=== PATIENT | female | born 1925 | race Caucasian/White ===

== ENCOUNTER 2016-07-12 04:36 | Inpatient (IN) | payer MEDICARE ==
[~2016-07-12] VITALS: Ht 154.9 cm; Wt 46.6 kg
[2016-07-12] VITALS (11 sets, daily range): BP systolic 104–161; BP diastolic 71–92; PULSE 81–126; RESP 18–22; TEMP 97.5–98.9; O2SAT 94–100
[~2016-07-12 04:36] MED LIST: ALEN1TAB48 PO; ASPI81CH7 CHEW; CELE1CAP6 PO; DILT120C58 PO; DONE5TAB7 PO; FLUTI44I INH; FURO1TAB62 PO; IPRA17I INH; NAME10TA PO; POTA10TA8 PO; SERO25TA PO; SUCR1TAB PO; UMEC1AER INH; XARE15TA PO; ZOLO50TA PO
[2016-07-12] MEDS ORDERED: RESP: ALBUTEROL 2.5 MG/IPRATROPIUM 0.5 MG NEB (SCH) INH ONE (04:45)
[2016-07-12] MEDS ORDERED: SODIUM CHLORIDE 0.9% FLUSH 10 ML FLUSH IVF PRN (04:45)
--- NOTE | 2016-07-12 04:45 | PD ---
HPI Chief Complaint: Respiratory Symptoms Time Seen by Provider: 04:41 Travel History International Travel<30 days: No Contact w/Intl Traveler<30days: No Traveled to known affect area: No History of Present Illness HPI 89-year-old female with history of COPD, dementia, multiple medical issues, presents to the ER today because of several days history of shortness of breath. EMS had given her Solu-Medrol and nebulizer in route and reports some improvement in symptoms. She denies fevers, chest pains, or other issues although it is not clear whether she is reliable historian. Modifying Factors: None Associated Signs & Symptoms: Several days of shortness of breath Risk Factors: COPD history PFSH Past Medical History Hx Anticoagulant Therapy: Yes (XARELTO) Arthritis: Yes Atrial Fibrillation: Yes Blood Disorders: No Anxiety: Yes Depression: Yes Heart Rhythm Problems: Yes (AFIB) Cancer: No Cardiovascular Problems: Yes (AFIB/FLUTTER) COPD: Yes Dementia: Yes Diminished Hearing: No Endocrine: No Gastrointestinal Disorders: No Genitourinary: No Immune Disorder: No Musculoskeletal: Yes (SPINAL STENOSIS, PELVIX FX) Neurologic: Yes Psychiatric: Yes Reproductive: No Respiratory: Yes (COPD) Immunizations Current: Yes Sleep Apnea: Yes Past Surgical History Abdominal Surgery: Yes (APPENDECTOMY, GALLBLADDER REMOVED) Appendectomy: Yes Cardiac Surgery: No Cholecystectomy: Yes Eye Surgery: Yes (CATARACT BILAT REPAIR) Gynecologic Surgery: Yes (HYSTERECTOMY) Hysterectomy: Yes Neurologic Surgery: No Thoracic Surgery: No Tonsillectomy: Yes Other Surgery: Yes (BACK SURGERY) Social History Alcohol Use: No Tobacco Use: No Substance Use: No Allergies-Medications (Allergen,Severity, Reaction): Coded Allergies: Lyrica (Verified Allergy, Severe, 11/24/15) Sulfa (Verified Allergy, Severe, HIVES, 11/24/15) Soma (Verified Allergy, Intermediate, passes out, 11/24/15) Reported Meds & Prescriptions Reported Meds & Active Scripts Active Seroquel (Quetiapine Fumarate) 25 Mg Tab 25 Mg PO HS Lasix (Furosemide) 20 Mg Tab 20 Mg PO MWF Reported Flonase Allergy Relief Children Nasal [place] (Fluticasone Nasal [place]) 50 Mcg/ Act [place] 1 [place] EACH NARE DAILY 50 mcg/spray Osteoprime Ultra (Multiple Vitamins W/ Minerals) 1 Tab Tab Fosamax (Alendronate Sodium) 70 Mg Tab 70 Mg PO Q7D PRN Docusate Sodium 100 Mg Cap 100 Mg PO BID Lanoxin (Digoxin) 0.125 Mg Tab 0.125 Mg PO DAILY Cardizem (Diltiazem HCl) 120 Mg Tab 120 Mg PO DAILY Zoloft (Sertraline HCl) 25 Mg Tab 25 Mg PO DAILY Xarelto (Rivaroxaban) 15 Mg Tab 15 Mg PO DAILY Potassium Chloride CR (Potassium Chloride) 10 Meq Tab 10 Meq PO MWF Namenda (Memantine) 10 Mg Tab 10 Mg PO BID Atrovent HFA 12.9 GM Inh (Ipratropium [place]) 17 Mcg/Act Aer 2 Puff INH TID Flovent Hfa 10.6 GM Inh (Fluticasone Propionate) 44 Mcg/Act Inh 2 Puff INH BID Use daily at the same time. Donepezil 5 Mg Tab 5 Mg PO HS Review of Systems ROS Limitations: Poor Historian Except as stated in HPI: all other systems reviewed are Neg Physical Exam Narrative GENERAL: Well-developed elderly white female patient currently in mild respiratory distress. Awake and disoriented. SKIN: Focused skin assessment warm/dry. HEAD: Atraumatic. Normocephalic. EYES: Pupils equal and round. No scleral icterus. No injection or drainage. ENT: No nasal bleeding or discharge. Mucous membranes pink and moist. NECK: Trachea midline. No JVD. CARDIOVASCULAR: Regular rate and rhythm. No murmur appreciated. RESPIRATORY: Mild accessory muscle use. Wheezing throughout bilaterally. Breath sounds equal bilaterally. GASTROINTESTINAL: Abdomen soft, non-tender, nondistended. Hepatic and splenic margins not palpable. MUSCULOSKELETAL: No obvious deformities. No clubbing. No cyanosis. No edema. NEUROLOGICAL: Awake and alert. No obvious cranial nerve deficits. Motor grossly within normal limits. Normal speech. PSYCHIATRIC: Appropriate mood and affect; insight and judgment normal. Data Data Last Documented VS Vital Signs Date Time Temp Pulse Resp B/P Pulse Ox O2 Delivery O2 Flow Rate FiO2 07/12/16 06:12 81 18 142/71 94 Room Air 07/12/16 04:52 2.00 07/12/16 04:42 98.9 Orders Complete Blood Count With Diff (07/12/16 04:41) Comprehensive Metabolic Panel (07/12/16 04:41) B-Type Natriuretic Peptide (07/12/16 04:41) Troponin I (07/12/16 04:41) Influenzae A/B Antigen (07/12/16 04:41) Blood Culture (07/12/16 04:41) Iv Access Insert/Monitor (07/12/16 04:41) Electrocardiogram (07/12/16 04:41) Ecg Monitoring (07/12/16 04:41) Oximetry (07/12/16 04:41) Oxygen Administration (07/12/16 04:41) Chest, Single Ap (07/12/16 04:41) Sodium Chloride 0.9% Flush (Ns Flush) (07/12/16 04:45) Albuterol-Ipratropium Neb (Duoneb Neb) (07/12/16 04:45) Lactic Acid Sepsis Protocol (07/12/16 04:41) Azithromycin Inj (Zithromax Inj) (07/12/16 05:42) Labs Laboratory Tests Test 07/12/16 04:50 White Blood Count 6.8 TH/MM3 Red Blood Count 4.35 MIL/MM3 Hemoglobin 12.2 GM/DL Hematocrit 37.0 % Mean Corpuscular Volume 85.1 FL Mean Corpuscular Hemoglobin 28.0 PG Mean Corpuscular Hemoglobin 33.0 % Concent Red Cell Distribution Width 15.0 % Platelet Count 170 TH/MM3 Mean Platelet Volume 8.2 FL Neutrophils (%) (Auto) 56.5 % Lymphocytes (%) (Auto) 24.5 % Monocytes (%) (Auto) 9.4 % Eosinophils (%) (Auto) 8.8 % Basophils (%) (Auto) 0.8 % Neutrophils # (Auto) 3.8 TH/MM3 Lymphocytes # (Auto) 1.7 TH/MM3 Monocytes # (Auto) 0.6 TH/MM3 Eosinophils # (Auto) 0.6 TH/MM3 Basophils # (Auto) 0.1 TH/MM3 CBC Comment DIFF FINAL Differential Comment Sodium Level 143 MEQ/L Potassium Level 3.4 MEQ/L Chloride Level 106 MEQ/L Carbon Dioxide Level 28.1 MEQ/L Anion Gap 9 MEQ/L Blood Urea Nitrogen 14 MG/DL Creatinine 0.54 MG/DL Estimat Glomerular Filtration 106 ML/MIN Rate Random Glucose 118 MG/DL Lactic Acid Level 1.1 mmol/L Calcium Level 9.9 MG/DL Total Bilirubin 0.5 MG/DL Aspartate Amino Transf 26 U/L (AST/SGOT) Alanine Aminotransferase 19 U/L (ALT/SGPT) Alkaline Phosphatase 88 U/L Troponin I 0.08 NG/ML B-Type Natriuretic Peptide 149 PG/ML Total Protein 7.3 GM/DL Albumin 3.0 GM/DL MDM Medical Decision Making Medical Screen Exam Complete: Yes Emergency Medical Condition: Yes Medical Record Reviewed: Yes Interpretation(s) EKG shows A. fib with rapid ventricular response at a heart rate beats per minute. No signs of acute ST-T changes. Laboratory Tests Test 07/12/16 04:50 Monocytes (%) (Auto) 9.4 % (0.0-8.0) Eosinophils (%) (Auto) 8.8 % (0.0-4.0) Eosinophils # (Auto) 0.6 TH/MM3 (0-0.4) Potassium Level 3.4 MEQ/L (3.5-5.1) Random Glucose 118 MG/DL (74-106) Troponin I 0.08 NG/ML (0.02-0.05) B-Type Natriuretic Peptide 149 PG/ML (0-100) Albumin 3.0 GM/DL (3.4-5.0) Last 24 hours Impressions Chest X-Ray 07/12/16 0441 Signed Impressions: Service Date/Time: Tuesday, July 12, 2016 05:08 - CONCLUSION: 1. Mild perihilar airspace disease, right greater than left. Minimal basilar density probably represents atelectasis. Davon Sheets MD Differential Diagnosis Shortness of breathCOPD exacerbation versus pneumonia versus CHF Narrative Course Chest x-ray did not show lobar pneumonia but does show some interstitial infiltrates questionable for underlying atypical pneumonia or bronchitis. IV antibiotics were initiated with Zithromax. BNP is unremarkable. Lab work was otherwise unremarkable except for elevated troponin of uncertain etiology. She is not complaining of chest pains currently and EKG did not show any signs of significant ST elevations or depressions. Findings may be secondary to rate. At this point, my plan would be to admit her for further treatment. Case was discussed with Dr. Bravo for admission. Diagnosis Primary Impression: COPD exacerbation Additional Impression: Bronchitis Admitting Information Admitting Physician Requests: Admit Lilliam Tobar MD July 12, 2016 04:45
[2016-07-12 05:08] LABS: AUTOMATED NEUTROPHIL # 3.8 TH/MM3 (1.8-7.7); BASOPHIL # 0.1 TH/MM3 (0-0.2); BASOPHIL % 0.8 % (0.0-2.0); EOSINOPHIL # 0.6 TH/MM3 (0-0.4); EOSINOPHIL % 8.8 % (0.0-4.0); HEMO FLAGS DIFF FINAL; LYMPH % 24.5 % (9.0-44.0); LYMPHOCYTE # 1.7 TH/MM3 (1.0-4.8); MEAN CELL VOLUME 85.1 FL (80.0-100.0); MONO % 9.4 % (0.0-8.0); NEUT % 56.5 % (16.0-70.0); PLATELET COUNT 170 TH/MM3 (150-450); RED BLOOD COUNT 4.35 MIL/MM3 (4.00-5.30); WHITE BLOOD COUNT 6.8 TH/MM3 (4.0-11.0)
[2016-07-12] MEDS ORDERED: ZOLO25TA PO (05:19)
[2016-07-12] MEDS ORDERED: OSTETAB13 (05:19)
[2016-07-12] MEDS ORDERED: DOCU100C PO (05:19)
[2016-07-12] MEDS ORDERED: LANO0.1212 PO (05:19)
[2016-07-12] MEDS ORDERED: FLUT1SPR9 EACH NARE (05:19)
[2016-07-12] MEDS ORDERED: CARD120T4 PO (05:19)
[2016-07-12] MEDS ORDERED: FOSA70TA PO (05:19)
[2016-07-12 05:31] LABS: ALT (GPT) 19 U/L (10-53); ANION GAP 9 MEQ/L (5-15); AST (GOT) 26 U/L (15-37); BICARBONATE 28.1 MEQ/L (21.0-32.0); BLOOD UREA NITROGEN 14 MG/DL (7-18); CHLORIDE 106 MEQ/L (98-107); GLOMERULAR FILTRATION RATE 106 ML/MIN (>89); POTASSIUM 3.4 MEQ/L (3.5-5.1); SODIUM (NA) 143 MEQ/L (136-145)
[2016-07-12 05:35] LABS: ALKALINE PHOSPHATASE 88 U/L (45-117); TOTAL BILIRUBIN ADULT 0.5 MG/DL (0.2-1.0)
--- NOTE | 2016-07-12 05:40 | RADRPT ---
EXAM DATE/TIME: 07/12/2016 05:08 [place] COMPARISON: CHEST SINGLE AP, November 24, 2015, 11:33. INDICATIONS : Patient has been short of breath since yesterday. MEDICAL HISTORY : Chronic obstructive pulmonary disease. Cardiovascular disease Dementia. SURGICAL HISTORY : Appendectomy. Cholecystectomy. Hysterectomy. ENCOUNTER: Initial ACUITY: 1 day PAIN SCORE: Non-responsive. LOCATION: Bilateral chest FINDINGS: Heart size is enlarged. Tortuous aorta. Mild perihilar and basilar airspace disease. No pneumothorax. No significant effusion. CONCLUSION: 1. Mild perihilar airspace disease, right greater than left. Minimal basilar density probably represe nts atelectasis. Davon Sheets MD on July 12, 2016 at 5:36 Board Certified Radiologist. This report was verified electronically.
[2016-07-12] MEDS ORDERED: AZITHROMYCIN INJ 500 MG in SODIUM CHLOR 0.9% 250 ML INJ 250 ML IV STA (05:42)
[2016-07-12] MEDS ORDERED: SODIUM CHLORIDE 0.9% FLUSH 10 ML FLUSH IV FLUSH PRN (07:00)
[2016-07-12] MEDS ORDERED: HEPARIN SODIUM - SQ 10,000 UNITS/ML VIAL SQ SCH (07:00)
[2016-07-12] MEDS ORDERED: RESP: ALBUTEROL 2.5 MG/IPRATROPIUM 0.5 MG NEB (PRN) NEB (07:00)
[2016-07-12] MEDS ORDERED: ONDANSETRON HCL 4 MG/2 ML VIAL IVP PRN (07:00)
[2016-07-12] MEDS ORDERED: ACETAMINOPHEN 325 MG TAB PO PRN (07:00)
[2016-07-12] MEDS ORDERED: NALOXONE HCL 0.4 MG/ML AMP IV PRN (07:00)
[2016-07-12] MEDS: cefTRIAXone INJ 1,000 MG in SODIUM CHLORIDE 0.9% INJ 100 ML IV SCH (07:28)
--- NOTE | 2016-07-12 07:43 | HHI.HP ---
HPI Service [facility] Primary Care Physician Evelio Thacker Admission Diagnosis COPD exacerbation/bronchitis/elevated troponin Diagnoses: Chief Complaint: sob (Nahomi Villegas) Travel History International Travel<30 Days: No Contact w/Intl Traveler <30 Da: No Traveled to Known Affected Are: No (Nahomi Villegas) History of Present Illness This an 89-year-old elderly female from a local assisted living facility with past medical history of COPD, dementia, A. fib on anticoagulation, hypertension. Patient presented to the emergency room because of several days of shortness of breath. Patient is unable to provide any information, she is demented. There is no family at bedside. Per review of emergency room records , EMS gave her Solu-Medrol and nebulizer treatments and there was some improvement in symptoms. Patient is examined emergency room, she wakes to voice. She has no idea where she is. Laboratory completed was essentially unremarkable. There was some mild elevation in troponin 0.08. No chest pain reported. B natruretic peptide 149. Lactic acid 1.1. Potassium 3.4. Chest x- ray showed mild perihilar airspace disease, right greater than left. Minimal basilar density probably representing atelectasis. Patient was started on Zithromax and Rocephin and given DuoNeb's. Patient is admitted for further medication and treatment. (Nahomi Villegas) Review of Systems ROS Limitations: Poor Historian (demented ) (Nahomi Villegas) Past Family Social History Past Medical History 1. Atrial fibrillation/flutter on Xarelto. 2. Recurrent urinary tract infections. 3. Chronic back pain. 4. Anxiety. 5. Depression. 6. COPD. 7. Sleep apnea with CPAP. 8. Dementia 9. Osteoporosis. 10. Hyperlipidemia. 11. Vertigo. 12. Osteoarthritis. 13. Hypertension. 14. Right fifth finger fracture. 15. Intertrochanteric fracture of right hip in October 2012. 16. Spinal stenosis 17. Compression fractures 18. Pelvic fracture 10. CHF Past Surgical History 1. Lumbar back surgery. 2. Hysterectomy. 3. Tonsillectomy. 4. Cholecystectomy. 5. Left cataract surgery x 2, the first one failed. 6. Left shoulder surgery. 7. ORIF of right hip. 8. Closed reduction of right proximal phalanx of ulnar splint October 2012. Reported Medications Reported Meds & Active Scripts Active Seroquel (Quetiapine Fumarate) 25 Mg Tab 25 Mg PO HS Lasix (Furosemide) 20 Mg Tab 20 Mg PO MWF Reported Flonase Allergy Relief Children Nasal [place] (Fluticasone Nasal [place]) 50 Mcg/ Act [place] 1 [place] EACH NARE DAILY 50 mcg/spray Osteoprime Ultra (Multiple Vitamins W/ Minerals) 1 Tab Tab Fosamax (Alendronate Sodium) 70 Mg Tab 70 Mg PO Q7D PRN Docusate Sodium 100 Mg Cap 100 Mg PO BID Lanoxin (Digoxin) 0.125 Mg Tab 0.125 Mg PO DAILY Cardizem (Diltiazem HCl) 120 Mg Tab 120 Mg PO DAILY Zoloft (Sertraline HCl) 25 Mg Tab 25 Mg PO DAILY Xarelto (Rivaroxaban) 15 Mg Tab 15 Mg PO DAILY Potassium Chloride CR (Potassium Chloride) 10 Meq Tab 10 Meq PO MWF Namenda (Memantine) 10 Mg Tab 10 Mg PO BID Atrovent HFA 12.9 GM Inh (Ipratropium [place]) 17 Mcg/Act Aer 2 Puff INH TID Flovent Hfa 10.6 GM Inh (Fluticasone Propionate) 44 Mcg/Act Inh 2 Puff INH BID Use daily at the same time. Donepezil 5 Mg Tab 5 Mg PO HS (Nahomi Villegas) Allergies: Coded Allergies: Lyrica (Verified Allergy, Severe, 11/24/15) Sulfa (Verified Allergy, Severe, HIVES, 11/24/15) Soma (Verified Allergy, Intermediate, passes out, 11/24/15) Active Ordered Medications Inpatient Medications Acetaminophen (Tylenol) 650 mg Q4H PRN PO TEMP > 100.4; Start 07/12/16 at 07:00 Albuterol/ Ipratropium (Duoneb Neb) 1 ampule Q4HR NEB PRN NEB SOB/WHEEZING; Start 07/12/16 at 07:00 Azithromycin/ Sodium Chloride (Zithromax Inj/ NS 250 ml Inj) 250 ml @ 250 mls/ hr Q24H IV ; Start 07/13/16 at 06:00 Ceftriaxone Sodium 1000 mg/ Sodium Chloride 100 ml @ 200 mls/hr Q24H IV Last administered on 07/12/16t 07:28; Start 07/12/16 at 07:00 Heparin Sodium (Porcine) (Heparin Inj) 5,000 units Q8HR SQ ; Start 07/12/16 at 07:00 Methylprednisolone Sodium Succinate 40 mg 40 mg Q8HR IV PUSH ; Start 07/12/16 at 14:00 Naloxone HCl (Narcan Inj) 0.4 mg UNSCH PRN IV SEE LABEL COMMENTS; Start at 07:00 Ondansetron HCl (Zofran Inj) 4 mg Q6H PRN IVP NAUSEA OR VOMITING; Start at 07:00 Sodium Chloride (NS Flush) 2 ml BID IV FLUSH ; Start 07/12/16 at 09:00 Family History Mother of Alzheimer's, father of Parkinson's. Social History The patient is , lives at [facility]. She has never smoked, very rare alcohol use. Uses WC and walker (Nahomi Villegas) Physical Exam Vital Signs Vital Signs Date Time Temp Pulse Resp B/P Pulse Ox O2 Delivery O2 Flow Rate FiO2 07/12/16 06:12 81 18 142/71 94 Room Air 07/12/16 04:52 98 Nasal Cannula 2.00 07/12/16 04:46 100 Nasal Cannula 2 07/12/16 04:46 100 Nasal Cannula 2 07/12/16 04:42 98.9 116 22 161/83 100 Physical Exam GENERAL: This is a thin built elderly female. SKIN: No rashes, ecchymoses or lesions. Cool and dry. HEAD: Atraumatic. Normocephalic. No temporal or scalp tenderness. EYES: Pupils equal round and reactive. Extraocular motions intact. No scleral icterus. No injection or drainage. ENT: Nose without bleeding, purulent drainage or septal hematoma. Throat without erythema, tonsillar hypertrophy or exudate. Uvula midline. Airway patent. NECK: Trachea midline. No JVD or lymphadenopathy. Supple, nontender, no meningeal signs. CARDIOVASCULAR: S1, S2, irregularly irregular, unable to detect murmur, rubs or gallops RESPIRATORY: Diffuse exp. wheezing GASTROINTESTINAL: Abdomen soft, non-tender, nondistended. No hepato-splenomegaly , or palpable masses. No guarding. MUSCULOSKELETAL: Extremities without clubbing, cyanosis, or edema. No joint tenderness, effusion, or edema noted. No calf tenderness. Negative Homans sign bilaterally. Bilat muscle atrophy lower extremities. NEUROLOGICAL: Awakes to voice, demented, no focal deficits. Laboratory Laboratory Tests Test 07/12/16 04:50 White Blood Count 6.8 Red Blood Count 4.35 Hemoglobin 12.2 Hematocrit 37.0 Mean Corpuscular Volume 85.1 Mean Corpuscular Hemoglobin 28.0 Mean Corpuscular Hemoglobin 33.0 Concent Red Cell Distribution Width 15.0 Platelet Count 170 Mean Platelet Volume 8.2 Neutrophils (%) (Auto) 56.5 Lymphocytes (%) (Auto) 24.5 Monocytes (%) (Auto) 9.4 Eosinophils (%) (Auto) 8.8 Basophils (%) (Auto) 0.8 Neutrophils # (Auto) 3.8 Lymphocytes # (Auto) 1.7 Monocytes # (Auto) 0.6 Eosinophils # (Auto) 0.6 Basophils # (Auto) 0.1 CBC Comment DIFF FINAL Differential Comment Sodium Level 143 Potassium Level 3.4 Chloride Level 106 Carbon Dioxide Level 28.1 Anion Gap 9 Blood Urea Nitrogen 14 Creatinine 0.54 Estimat Glomerular Filtration 106 Rate Random Glucose 118 Lactic Acid Level 1.1 Calcium Level 9.9 Total Bilirubin 0.5 Aspartate Amino Transf 26 (AST/SGOT) Alanine Aminotransferase 19 (ALT/SGPT) Alkaline Phosphatase 88 Troponin I 0.08 B-Type Natriuretic Peptide 149 Total Protein 7.3 Albumin 3.0 Date/Time Procedure Status Source Growth 07/12/16 05:00 Aerobic Blood Culture Received Blood Peripheral Pending 07/12/16 05:00 Anaerobic Blood Culture Received Blood Peripheral Pending 07/12/16 04:50 Influenza Types A,B Antigen (BRENNEN) - Final Complete Nasal Washing NEGATIVE FOR FLU A AND B ANTIGEN.... 07/12/16 04:41 Influenza Types A,B Antigen (BRENNEN) Received Nasal Washing Pending (Nahomi Villegas) Result Diagram: 07/12/16 04507/12/16 045 Imaging Last Impressions Chest X-Ray 07/12/16440 Signed Impressions: Service Date/Time: Tuesday, July 12, 2016 05:08 - CONCLUSION: 1. Mild perihilar airspace disease, right greater than left. Minimal basilar density probably represents atelectasis. Davon Sheets MD (Nahomi Villegas) Assessment and Plan Problem List: (1) COPD exacerbation (2) Bronchitis (3) Atrial fibrillation (4) Hypertension (5) Dementia (6) CHF (congestive heart failure) Assessment and Plan Admit to Dr. Gallegos 89-year-old patient with dementia, COPD, A. fib, CHF. Presented to emergency room with complaints of shortness of breath. COPD exacerbation with bronchitis -Continue with supplemental oxygen at 2 L to keep sats greater than 92 Continue with IV Solu-Medrol 40 mg IV every 8 Continue with DuoNeb's Continue with empiric antibiotics, Zithromax and Rocephin. Elevated troponin, no complaint of chest pain Continue with serial cardiac enzymes Chronic A. fib flutter, heart rate stable Continue with Cardizem 120 mg by mouth daily Continuous cardiac telemetry Continue with Xarelto 50 mg by mouth daily Chronic CHF, stable -Continue Lasix and potassium supplement Hypertension, stable Continue home medications Dementia Anxiety -Continue with Namenda and Aricept Continue with Zoloft and Seroquel Home medications have been reviewed, initiated as indicated Continue with Xarelto for DVT prophylaxis Plan of care has been discussed with the RN and attending. Further management of the patient will be dependent on the hospital course This patient was seen by myself and Dr. Gallegos, this H&P is written on his behalf (Nahomi Villegas) Assessment and Plan pt seen and examined as above with at bedside chart reviewd dw rn plan of care jefe blanco dw at bedside (Sudhir Gallegos MD) Problem Qualifiers (1) Atrial fibrillation: Qualified Code: I48.2 - Chronic atrial fibrillation (2) Hypertension: Qualified Code: I10 - Essential hypertension (3) Dementia: Qualified Code: F03.90 - Dementia without behavioral disturbance, unspecified dementia type (4) CHF (congestive heart failure): Qualified Code: I50.9 - Chronic congestive heart failure, unspecified congestive heart failure type Nahomi Villegas July 12, 2016 07:43 Sudhir Gallegos MD July 12, 2016 09:53
[2016-07-12] MEDS: RESP: ALBUTEROL 2.5 MG/IPRATROPIUM 0.5 MG NEB (SCH) NEB ×3 (08:06→20:48)
[2016-07-12] MEDS: FLUTICASONE PROPIONATE 44 MCG/ACT 10.6 GM INHALER INH SCH ×2 (09:00→20:37)
[2016-07-12] MEDS: DOCUSATE SODIUM 100 MG CAP PO SCH ×2 (10:33→20:37)
[2016-07-12] MEDS: DILTIAZEM-CD 120 MG CAP ER PO SCH (10:33)
[2016-07-12] MEDS: SERTRALINE HCL 50 MG TAB PO SCH (10:33)
[2016-07-12] MEDS: DIGOXIN 0.125 MG TAB PO SCH (10:33)
[2016-07-12] MEDS: MEMANTINE HCL 10 MG TAB PO SCH ×2 (10:33→20:37)
[2016-07-12] MEDS: RIVAROXABAN 15 MG TAB PO SCH (10:36)
[2016-07-12] MEDS ORDERED: MAGNESIUM HYDROXIDE SUSP 30 ML CUP PO ONE (11:00)
[2016-07-12] MEDS: methylPREDNISolone SOD SUCC 40 MG/1 ML VIAL IV PUSH SCH ×2 (14:09→20:37)
[2016-07-12] MEDS: SODIUM CHLORIDE 0.9% FLUSH 10 ML FLUSH IV FLUSH SCH ×2 (14:09→20:38)
--- NOTE | 2016-07-12 16:49 | EKG ---
Date Performed: 07/12/2016 Time Performed: 04:51:52 PTAGE: 89 years EKG: ATRIAL FIBRILLATION WITH RAPID VENTRICULAR RESPONSE MARKED LEFT AXIS DEVIATION SEPTAL MYOCA RDIAL INFARCTION Compared to previous tracing, the patient is now in atrial fibrillation with rapid v entricular response ABNORMAL ECG PREVIOUS TRACING : 11/25/2015 00.49 DOCTOR: Patricia Owusu Interpretating Date/Time 07/12/2016 16:47:12
[2016-07-12] MEDS: DONEPEZIL HCL 5 MG TAB PO SCH (20:37)
[2016-07-12] MEDS: QUEtiapine FUMARATE 25 MG TAB PO SCH (20:37)
[2016-07-13] VITALS (9 sets, daily range): BP systolic 109–147; BP diastolic 60–80; PULSE 86–110; RESP 18–20; TEMP 96.5–98; O2SAT 96–100
[2016-07-13] MEDS: methylPREDNISolone SOD SUCC 40 MG/1 ML VIAL IV PUSH SCH ×3 (05:07→20:59)
[2016-07-13] MEDS: AZITHROMYCIN INJ 500 MG in SODIUM CHLOR 0.9% 250 ML INJ 250 ML IV SCH (05:08)
[2016-07-13 05:15] LABS: AUTOMATED NEUTROPHIL # 7.4 TH/MM3 (1.8-7.7); BASOPHIL % 0.1 % (0.0-2.0); HEMATOCRIT 35.5 % (35.0-46.0); HEMO FLAGS DIFF FINAL; LYMPH % 7.3 % (9.0-44.0); LYMPHOCYTE # 0.6 TH/MM3 (1.0-4.8); MEAN CELL VOLUME 85.2 FL (80.0-100.0); MEAN CORPUSCULAR HEMOGLOBIN 27.6 PG (27.0-34.0); MEAN CORPUSCULAR HGB CONC 32.4 % (32.0-36.0); MONO % 2.9 % (0.0-8.0); NEUT % 89.7 % (16.0-70.0); PLATELET COUNT 183 TH/MM3 (150-450); RED BLOOD COUNT 4.17 MIL/MM3 (4.00-5.30); RED CELL DISTRIBUTION WIDTH 14.8 % (11.6-17.2); WHITE BLOOD COUNT 8.2 TH/MM3 (4.0-11.0)
[2016-07-13 05:29] LABS: POTASSIUM 3.6 MEQ/L (3.5-5.1)
[2016-07-13] MEDS: cefTRIAXone INJ 1,000 MG in SODIUM CHLORIDE 0.9% INJ 100 ML IV SCH (06:20)
--- NOTE | 2016-07-13 07:50 | HHI.PR ---
Subjective Remarks pt. more awake, oriented to self and noted with inc. cough, tachypneic tachycardic difficult to obtain ROS at [facility], states she has been coughing a lot she slept better asking if she is going to be discharged today Objective Objective Results - Vital Signs Date Time Temp Pulse Resp B/P Pulse Ox O2 Delivery O2 Flow Rate FiO2 07/13/16 04:00 98.0 86 20 116/65 100 07/13/16 00:26 110 07/13/16 00:00 97.5 94 20 132/60 100 07/12/16 20:50 96 Nasal Cannula 3.00 07/12/16 19:38 98.4 96 18 104/71 100 07/12/16 16:00 97.5 99 18 119/79 100 07/12/16 12:34 97.9 104 18 126/83 100 07/12/16 09:28 97.7 126 18 128/92 100 07/12/16 08:22 101 18 134/87 96 07/12/16 08:12 97 Nasal Cannula 2.00 Result Diagram: 07/13/16 0400 07/13/16 0400 Imaging Last Impressions Chest X-Ray 07/12/16 0441 Signed Impressions: Service Date/Time: Tuesday, July 12, 2016 05:08 - CONCLUSION: 1. Mild perihilar airspace disease, right greater than left. Minimal basilar density probably represents atelectasis. Davon Sheets MD Other Results Laboratory Tests Test 07/12/16 07/12/16 07/13/16 09:30 12:20 04:00 Troponin I 0.10 0.10 White Blood Count 8.2 Red Blood Count 4.17 Hemoglobin 11.5 Hematocrit 35.5 Mean Corpuscular Volume 85.2 Mean Corpuscular Hemoglobin 27.6 Mean Corpuscular Hemoglobin 32.4 Concent Red Cell Distribution Width 14.8 Platelet Count 183 Mean Platelet Volume 8.8 Neutrophils (%) (Auto) 89.7 Lymphocytes (%) (Auto) 7.3 Monocytes (%) (Auto) 2.9 Eosinophils (%) (Auto) 0.0 Basophils (%) (Auto) 0.1 Neutrophils # (Auto) 7.4 Lymphocytes # (Auto) 0.6 Monocytes # (Auto) 0.2 Eosinophils # (Auto) 0.0 Basophils # (Auto) 0.0 CBC Comment DIFF FINAL Differential Comment Sodium Level 143 Potassium Level 3.6 Chloride Level 107 Carbon Dioxide Level 29.0 Anion Gap 7 Blood Urea Nitrogen 21 Creatinine 0.64 Estimat Glomerular Filtration 87 Rate Random Glucose 145 Calcium Level 9.8 Date/Time Procedure Status Source Growth 07/12/16 05:00 Aerobic Blood Culture Received Blood Peripheral Pending 07/12/16 05:00 Anaerobic Blood Culture Received Blood Peripheral Pending 07/12/16 04:50 Influenza Types A,B Antigen (BRENNEN) - Final Complete Nasal Washing NEGATIVE FOR FLU A AND B ANTIGEN.... 07/12/16 04:41 Influenza Types A,B Antigen (BRENNEN) Received Nasal Washing Pending ROS General: Other (12 point ROS difficult to obtain, demented ) Pulmonary: Cough, Wheezing Physical Exam Physical Exam GENERAL: This is a thin built elderly female. SKIN: No rashes, ecchymoses or lesions. Cool and dry. HEAD: Atraumatic. Normocephalic. No temporal or scalp tenderness. EYES: Pupils equal round and reactive. Extraocular motions intact. No scleral icterus. No injection or drainage. ENT: Nose without bleeding, purulent drainage or septal hematoma. Throat without erythema, tonsillar hypertrophy or exudate. Uvula midline. Airway patent. NECK: Trachea midline. No JVD or lymphadenopathy. Supple, nontender, no meningeal signs. CARDIOVASCULAR: S1, S2, irregularly irregular, unable to detect murmur, rubs or gallops RESPIRATORY: Coarse ronchi, wheezing, bibasilar rales. Cough, non productive GASTROINTESTINAL: Abdomen soft, non-tender, nondistended. No hepato-splenomegaly , or palpable masses. No guarding. MUSCULOSKELETAL: Extremities without clubbing, cyanosis, or edema. No joint tenderness, effusion, or edema noted. No calf tenderness. Negative Homans sign bilaterally. Bilat muscle atrophy lower extremities. NEUROLOGICAL: more awake, oriented to self and , following simple commands. Cooperative, demented Urinary Catheter: No Vascular Central Line Catheter: No A/P Diagnosis: (1) COPD exacerbation (2) Bronchitis (3) Atrial fibrillation (4) Hypertension (5) Dementia (6) CHF (congestive heart failure) Assessment and Plan 89-year-old patient with dementia, COPD, A. fib, CHF. Presented to emergency room with complaints of shortness of breath. COPD exacerbation with bronchitis remains with inc. cough, congested. -Continue with supplemental oxygen at 2 L to keep sats greater than 92 Continue with IV Solu-Medrol 40 mg IV every 8 Continue with DuoNeb's Continue with empiric antibiotics, Zithromax and Rocephin. -Add Robitussin PRN -Pulm consult Dr. Aguiar -ABG on RA now Elevated troponin, no complaint of chest pain trop. not trending up -continue with medical management -cardiology consultation pending Chronic A. fib flutter, heart rate stable Continue with Cardizem 120 mg by mouth daily Continuous cardiac telemetry Continue with Xarelto 50 mg by mouth daily Acute on Chronic CHF, mild elevation in BNP noted with inc. rales today -change Lasix to 20 mg IV BID and K supplement Hypertension, stable Continue home medications Dementia Anxiety -Continue with Namenda and Aricept Continue with Zoloft and Seroquel Labs in am PT eval and tx ok OOB if she can tolerate Continue with Xarelto for DVT prophylaxis pt. not ready for discharge, needs inpatient admission. Risk of complications such as pulm edema, resp. failure. Needs IV diuretics, IV steroid, oxygen. Pt elderly, multiple comorbidities. D/W Dr. Bravo D/W pt's D/W RN This patient was seen by myself and Dr. Gallegos, this note is written on his behalf Problem Qualifiers (1) Atrial fibrillation: Qualified Code: I48.2 - Chronic atrial fibrillation (2) Hypertension: Qualified Code: I10 - Essential hypertension (3) Dementia: Qualified Code: F03.90 - Dementia without behavioral disturbance, unspecified dementia type (4) CHF (congestive heart failure): Qualified Code: I50.9 - Chronic congestive heart failure, unspecified congestive heart failure type Nahomi Villegas July 13, 2016 07:50
[2016-07-13] MEDS ORDERED: guaiFENesin/DEXTROMETHORPHAN 200 MG/20 MG/10 ML CUP PO PRN (08:00)
[2016-07-13] MEDS ORDERED: FUROSEMIDE 20 MG TAB PO SCH (08:09)
[2016-07-13] MEDS ORDERED: POTASSIUM CHLORIDE 10 MEQ CONTROLLED RELEASE TAB PO SCH (08:11)
[2016-07-13] MEDS: RESP: ALBUTEROL 2.5 MG/IPRATROPIUM 0.5 MG NEB (SCH) NEB ×3 (08:12→22:00)
[2016-07-13] MEDS: DILTIAZEM-CD 120 MG CAP ER PO SCH (10:19)
[2016-07-13] MEDS: RIVAROXABAN 15 MG TAB PO SCH (10:20)
[2016-07-13] MEDS: SERTRALINE HCL 50 MG TAB PO SCH (10:20)
[2016-07-13] MEDS: DOCUSATE SODIUM 100 MG CAP PO SCH ×2 (10:21→20:59)
[2016-07-13] MEDS: DIGOXIN 0.125 MG TAB PO SCH (10:21)
[2016-07-13] MEDS: MEMANTINE HCL 10 MG TAB PO SCH ×2 (10:21→20:58)
[2016-07-13] MEDS: POTASSIUM CHLORIDE 20 MEQ CONTROLLED RELEASE TAB PO SCH (10:24)
[2016-07-13] MEDS: FUROSEMIDE 20 MG/2 ML VIAL IV PUSH SCH ×2 (10:24→18:00)
[2016-07-13] MEDS: FLUTICASONE PROPIONATE 44 MCG/ACT 10.6 GM INHALER INH SCH ×2 (10:25→20:59)
[2016-07-13] MEDS: SODIUM CHLORIDE 0.9% FLUSH 10 ML FLUSH IV FLUSH SCH ×2 (10:25→20:58)
[2016-07-13 10:45] LABS: BLOOD GAS BASE EXCESS 1.7 mmol/L (-2-2); BLOOD GAS HCO3 25 mmol/L (22-26); BLOOD GAS METHEMOGLOBIN 0.5 % (0-2); BLOOD GAS O2 HGB SATURATION 96 % (90-100); BLOOD GAS OXYGEN CONTENT 16.8 Vol % (12.0-20.0); BLOOD GAS PCO2 38 mmHg (38-42); BLOOD GAS PO2 92 mmHG (61-120); BLOOD GAS TOTAL HGB 12.3 G/DL (12.0-16.0); TEMP CORR TO 98.6
[2016-07-13 10:46] LABS: CRITICAL VALUE NO; DRAW SITE RT RADIAL; NUMBER OF ARTERIAL PUNCTURES 1; OXYGEN DEVICE ROOM AIR; STAT NO; ULNAR PULSE PRESENT
[2016-07-13] MEDS ORDERED: cefTRIAXone INJ 1,000 MG in SODIUM CHLORIDE 0.9% INJ 100 ML IV SCH (13:15)
--- NOTE | 2016-07-13 13:18 | EKG ---
Date Performed: 07/12/2016 Time Performed: 11:37:36 PTAGE: 89 years EKG: ATRIAL FLUTTER/TACHYCARDIA BORDERLINE LEFT AXIS DEVIATION NONSPECIFIC ST & T-WAVE ABNORMALI TY ABNORMAL ECG Compared to prior tracing no significant change PREVIOUS TRACING : 07/12/2016 04.51 DOCTOR: Agustin Reddy Interpretating Date/Time 07/13/2016 13:15:22
[2016-07-13] MEDS ORDERED: MAGNESIUM HYDROXIDE SUSP 30 ML CUP PO PRN (14:45)
[2016-07-13] MEDS: DONEPEZIL HCL 5 MG TAB PO SCH (20:58)
[2016-07-13] MEDS: QUEtiapine FUMARATE 25 MG TAB PO SCH (20:59)
[2016-07-14] VITALS (10 sets, daily range): BP systolic 129–165; BP diastolic 59–83; PULSE 88–118; RESP 18; TEMP 97–98.1; O2SAT 92–97
--- NOTE | 2016-07-14 06:33 | RADRPT ---
EXAM DATE/TIME: 07/14/2016 06:11 [facility] COMPARISON: CHEST SINGLE AP, July 12, 2016, 5:08. INDICATIONS : Short of breath, evaluate pneumonia MEDICAL HISTORY : Chronic obstructive pulmonary disease. Cardiovascular disease. dementia SURGICAL HISTORY : Appendectomy. Cholecystectomy. Hysterectomy. back fusion ENCOUNTER: Subsequent ACUITY: 2 days PAIN SCORE: Non-responsive. LOCATION: Bilateral chest FINDINGS: Slight cardiomegaly unchanged. Perivascular interstitial process is present not changed. Bibasilar op acities have not changed. CONCLUSION: No appreciable change. Javier Aguilar MD on July 14, 2016 at 6:31 Board Certified Radiologist. This report was verified electronically.
--- NOTE | 2016-07-14 06:42 | MB ---
cc: CYNTHIA JACINTO M.D. DATE OF CONSULTATION 07/13/2016 Thank you, Dr. Bravo, for asking me see this very pleasant 89-year-old white female who is from a local assisted living facility. HISTORY OF PRESENT ILLNESS She was admitted here with shortness of breath. She had a slight elevation in BNP. She also was noted to have minimal basilar density, probably representing atelectasis and mild perihilar airspace disease. She is being treated with Zithromax, Rocephin and DuoNeb and is feeling better. REVIEW OF SYSTEMS Not available from the patient. is quite agitated as the patient was quite short of breath in the facility. PAST MEDICAL HISTORY 1. Positive for atrial fibrillation/flutter on Xarelto. 2. Urinary tract infections. 3. Chronic back pain. 4. Anxiety depression. 5. COPD. 6. Sleep apnea. 7. Dementia. 8. Osteoporosis. 9. Hyperlipidemia. 10. Vertigo. 11. Osteoarthritis. 12. Hypertension. 13. Right fifth finger fracture. 14. Intertrochanteric fracture of the right hip. 15. Spinal stenosis. 16. Compression fracture. 17. Pelvic fracture. 18. CHF. 19. Hysterectomy. 20. Lumbar back surgery. 12. Cholecystectomy. 13. Cataract surgery. 14. ORIF of hip. 15. Shoulder surgery. MEDICATIONS CURRENTLY 1. Lasix 2. Seroquel. PHYSICAL EXAMINATION VITAL SIGNS: Pulse is 81, blood pressure 142/71, respirations 18. EYES: No xanthelasma. MOUTH: No cyanosis or pallor. NECK: No JVD. HEART: She has two heart sounds, no murmurs. CHEST: Clear. ABDOMEN: Soft. No hepatosplenomegaly. EXTREMITIES: Legs reveal no evidence of edema. NEUROLOGICAL: She was awake to voice. She was not quite oriented to place. LABORATORY TESTS White count 6.8, hemoglobin 12.2, platelet count 170,000. Blood cultures are currently pending. X-RAYS Chest x-ray showed mild airspace disease, right greater than left. ASSESSMENT AND PLAN The patient has - 1. Mild CHF. 2. COPD exacerbation. 3. Bronchitis. 4. Atrial fibrillation. 5. Hypertension. 6. Dementia. At this point we will continue with treatment for COPD exacerbation including antibiotics. Chronic congestive heart failure should be treated with Lasix. Hypertension is stable. Troponin - no complaint of chest pain. Dementia with anxiety, appears to be stable. I had a long discussion with her . At this point she appears to be stable. We will treat the above and she can be discharged in the next day or two. Thank you for asking us see this very pleasant lady. NOTE: EKG showed atrial flutter with mild tachycardia and non-specific ST-T wave changes. Cynthia Jacinto MD, FRCP,FACC [facility]/SSB /7:44 PM /6:32 AM
[2016-07-14] MEDS: cefTRIAXone INJ 1,000 MG in SODIUM CHLORIDE 0.9% INJ 100 ML IV SCH (06:49)
[2016-07-14] MEDS: methylPREDNISolone SOD SUCC 40 MG/1 ML VIAL IV PUSH SCH ×2 (06:49→14:47)
[2016-07-14] MEDS: AZITHROMYCIN INJ 500 MG in SODIUM CHLOR 0.9% 250 ML INJ 250 ML IV SCH (07:00)
--- NOTE | 2016-07-14 07:45 | MB ---
cc: JOSEFA PACKER MD, JOHN DATE OF CONSULTATION: 07/13/2016 REASON FOR CONSULTATION COPD. HISTORY OF PRESENT ILLNESS This is an 89-year-old white female with a history of COPD and a longstanding history of dementia and hypertension who was brought to the emergency room with progressive shortness of breath over the past one week. The patient has not been on any oxygen at home and she was lives at an assisted living facility with her . Upon arrival in the ER a chest x-ray was done which showed mild perihilar infiltrates more on the right side and basilar atelectasis. She was placed on oxygen via nasal cannula at 2.5 liters and started on IV Rocephin and Zithromax and now admitted for evaluation. The patient has a cough, brings up very little mucus. She has no fevers or chills. She has some leg cramping and trouble ambulating. The other system review is unremarkable but the patient is unreliable and has dementia. There is a previous history of atrial fibrillation and she has been on Xarelto. She has chronic back pain as well. PAST MEDICAL HISTORY 1. COPD. 2. Emphysema. 3. Obstructive sleep apnea. 4. Dementia. 5. Osteoporosis. 6. Hypertension. 7. Atrial fibrillation. 8. Multiple UTIs. 9. Osteoarthritis. 10.Intertrochanteric right hip fracture in the past. 11.Compression fracture of the vertebrae. PAST SURGICAL HISTORY 1. Tonsillectomy. 2. Hysterectomy. 3. Lumbar disc surgery. 4. Cataract repair with implant. 5. Left shoulder surgery. 6. Right hip ORIF for fracture. 7. Right proximal phalanx of the ulna. MEDICATIONS 1. Seroquel 25 mg h.s. 2. Fosamax 100 mg daily. 3. Lanoxin 0.125 mg a day. 4. Xarelto 15 mg daily. 5. Potassium chloride 10 mEq every other day. 6. Flovent HFA 110 mcg, two puffs every other day. 7. Benazepril 5 mg at bedtime. 8. Flonase nasal spray. 9. Lasix 20 mg every other day. ALLERGIES 1. SULFA. 2. SOMA. 3. LIDOCAINE. FAMILY HISTORY Noncontributory. HABITS The patient has no history of smoking but has been exposed to secondhand smoke. Alcohol use occasional. FAMILY HISTORY Noncontributory. REVIEW OF SYSTEMS The patient has lost weight. She has headaches but no blackouts. She has urinary frequency. She has joint pains, leg pains and back pain. No skin rash. She does have some anxiety and depression. PHYSICAL EXAMINATION GENERAL: This is an elderly thinly built white female who is in no distress. Mild pallor. No cyanosis. VITAL SIGNS: Blood pressure 140/80, pulse 82, respirations 20, temperature 97.2. Weight not obtained. HEENT: Head is normocephalic. Pupils reactive and equal. Tongue is moist. Nasal mucosa edematous. Throat is injected. NECK: Supple. No lymphadenopathy. No bruits. No thyroid enlargement. CHEST: Equal movements with scattered wheezes bilaterally. Prolonged expirations. HEART: The heart sounds are irregular, S1 and S2. No murmur. No S3. ABDOMEN: Soft, benign. No masses or organomegaly. No tenderness. Bowel sounds are active. EXTREMITIES: Mild varicosities. No edema. No calf tenderness. NEUROLOGIC: Reflexes are 1+ with no gross motor deficits. Cranial nerves grossly intact. RECTAL: Deferred. IMPRESSION 1. COPD with acute exacerbation. 2. Atrial fibrillation and ASHD. 3. Hypertension. 4. Dementia. 5. History of CHF and ASHD. PLAN The patient has been placed on O2 at 2.5 liters. Continue with the nebulized DuoNeb solution four times daily and Solu-Medrol 40 mg q.8h. Antibiotic coverage will be continued including Rocephin one gram IV and Zithromax 500 mg IV daily. Thank you for this consultation. MD DIANA Cruz/SAMANTHA /10:45 PM /7:28 AM
[2016-07-14] MEDS: RESP: ALBUTEROL 2.5 MG/IPRATROPIUM 0.5 MG NEB (SCH) NEB ×3 (08:43→19:27)
[2016-07-14 08:49] LABS: HEMATOCRIT 36.2 % (35.0-46.0); MEAN CELL VOLUME 85.3 FL (80.0-100.0); MEAN CORPUSCULAR HEMOGLOBIN 28.5 PG (27.0-34.0); MEAN CORPUSCULAR HGB CONC 33.5 % (32.0-36.0); PLATELET COUNT 210 TH/MM3 (150-450); RED BLOOD COUNT 4.25 MIL/MM3 (4.00-5.30); RED CELL DISTRIBUTION WIDTH 15.1 % (11.6-17.2); REVIEW FLAG FINAL; WHITE BLOOD COUNT 12.2 TH/MM3 (4.0-11.0)
[2016-07-14 09:24] LABS: POTASSIUM 4.4 MEQ/L (3.5-5.1)
[2016-07-14] MEDS: DILTIAZEM-CD 120 MG CAP ER PO SCH (10:08)
[2016-07-14] MEDS: RIVAROXABAN 15 MG TAB PO SCH (10:08)
[2016-07-14] MEDS: DIGOXIN 0.125 MG TAB PO SCH (10:08)
[2016-07-14] MEDS: DOCUSATE SODIUM 100 MG CAP PO SCH ×2 (10:08→21:11)
[2016-07-14] MEDS: POTASSIUM CHLORIDE 20 MEQ CONTROLLED RELEASE TAB PO SCH (10:08)
[2016-07-14] MEDS: MEMANTINE HCL 10 MG TAB PO SCH ×2 (10:08→21:10)
[2016-07-14] MEDS: FLUTICASONE PROPIONATE 44 MCG/ACT 10.6 GM INHALER INH SCH ×2 (10:09→21:21)
[2016-07-14] MEDS: FUROSEMIDE 20 MG/2 ML VIAL IV PUSH SCH (10:09)
[2016-07-14] MEDS: SODIUM CHLORIDE 0.9% FLUSH 10 ML FLUSH IV FLUSH SCH ×2 (10:09→21:11)
--- NOTE | 2016-07-14 12:02 | HHI.PR ---
Subjective Remarks Head of bed elevated almost 90 Patient is awake Active coughing with cake in her mouth in room Concerned with possible aspiration (Juanita Carr) Objective Objective Results - Vital Signs Date Time Temp Pulse Resp B/P Pulse Ox O2 Delivery O2 Flow Rate FiO2 07/14/16 08:46 96 21 07/14/16 08:00 97.0 95 18 131/83 92 07/14/16 04:00 97.4 92 18 134/59 96 07/14/16 03:48 104 07/14/16 02:19 100 07/14/16 00:00 98.1 88 18 145/67 95 07/13/16 22:00 98 Nasal Cannula 2.00 07/13/16 20:00 98.0 90 18 147/80 96 07/13/16 17:19 97.2 94 18 113/66 97 (Juanita Carr) Result Diagram: 07/14/16 0812 07/14/16 0812 ROS General: Fatigue, Weakness, Other (10 point ROS done positives noted otherwise systems are negative) GI: BM (no BM in 2 days, will monitor bowel regimen), Other (possible dysphasia , high risk for aspiration) Neuro/MS: Confusion (pleasant), Other (dementia) (Juanita Carr) Physical Exam Physical Exam PHYSICAL EXAMINATION GENERAL: This is a elderly borderline frail female active coughing with food in her mouth She is awake, responds to verbal stimuli but pleasant confusion HEAD: Normocephalic, atraumatic OROPHARYNGEAL: Oropharynx with residual food in her mouth NECK: Supple. Trachea midline without deviation. CARDIAC: Irregular rhythm, rate 90s to 100, A. fib flutter noted on telemetry LUNGS: Diminished to auscultation bilaterally. no wheeze, occasional rhonchi , decreased breath sounds in her bases. No use of accessory muscles on inspiration or expiration. ABDOMEN: Soft, nontender, no organomegaly or masses. Bowel sounds are heard in all four quadrants. EXTREMITIES: no edema. Pulses palpable NEUROLOGICAL: Patient mood and affect pleasantly confused SKIN:Warm and moist, dry, pale (Juanita Carr) A/P Assessment and Plan COPD exacerbation with bronchitis remains with inc. cough, congested. O2, dual nebs ,steroids, Continue with empiric antibiotics, Zithromax and Rocephin. Cough noted with liquids and food, patient still has food in her mouth this morning Will have ST eval for possible aspiration Elevated troponin, no complaint of chest pain trop. not trending up -continue with medical management, appreciate cardiology consult Will treat symptomatically, keep IV Lasix today and evaluate for by mouth tomorrow Chronic A. fib flutter, heart rate stable 90s to 100 Continue with Cardizem 120 mg by mouth daily cardiac telemetry, Xarelto Acute on Chronic CHF, mild elevation in BNP Continue IV Lasix today will evaluate for by mouth tomorrow Hypertension, stable Continue home medications Dementia, probable end-stage with possible dysphagia ST eval along with PT eval for her needs, needs to be out of bed -Continue with Namenda and Aricept Continue with Zoloft and Seroquel Continue with Xarelto for DVT prophylaxis pt. not ready for discharge, needs inpatient admission. Risk of complications such as pulm edema, resp. failure. Needs IV diuretics, IV steroid, oxygen. Pt elderly, multiple comorbidities. D/W Dr. Bravo, seen on her behalf D/W pt's , reviewed basic test and plan of care d/ w nurse (Juanita Carr) Assessment and Plan patient seen and examined \ agree with above assessment and plan breathing much better decrease methylprednisolone to 40 mg i/v q12h complaining of constipation will add dulcolax suppository change lasix to po passed swallow eval anticipate discharge to [facility] in morning plan of care discussed with patient's , nursing staff and Juanita FOX ( Natalie Bravo MD) Juanita Carr July 14, 2016 12:02 Natalie Bravo MD July 14, 2016 14:58
[2016-07-14] MEDS ORDERED: PILL SPLITTER OTHER PRN (12:15)
[2016-07-14] MEDS ORDERED: BISACODYL 10 MG SUPP RECTAL PRN (15:00)
--- NOTE | 2016-07-14 20:42 | HHI.PR ---
Subjective Remarks Better now . On IV antibiotics. CXR no change. Off O2 sat 95. Objective Vital Signs Date Time Temp Pulse Resp B/P Pulse Ox O2 Delivery O2 Flow Rate FiO2 07/14/16 19:27 96 21 07/14/16 16:00 97.0 103 18 129/77 97 07/14/16 12:00 97.8 94 18 165/64 97 07/14/16 08:46 96 21 07/14/16 08:00 94 07/14/16 08:00 97.0 95 18 131/83 92 07/14/16 04:00 97.4 92 18 134/59 96 07/14/16 03:48 104 07/14/16 02:19 100 07/14/16 00:00 98.1 88 18 145/67 95 07/13/16 22:00 98 Nasal Cannula 2.00 I/O 07/13/16 07/13/16 07/13/16 07/14/16 07/14/16 07/14/16 07:00 15:00 23:00 07:00 15:00 23:00 Intake Total 360 ml Balance 360 ml Intake Oral 360 ml # Voids 2 3 # Bowel Movements 0 0 Result Diagram: 07/14/16 0812 07/14/16 0812 Objective Remarks GENERAL: This is an elderly thinly built white female who is in no distress. Mild pallor. No cyanosis. HEENT: Head is normocephalic. Pupils reactive and equal. Tongue is moist. Nasal mucosa edematous. Throat is clear . NECK: Supple. No lymphadenopathy. No bruits. No thyroid enlargement. CHEST: Equal movements with scattered wheezes bilaterally. Prolonged expirations.Occ Basal crackles HEART: The heart sounds are irregular, S1 and S2. No murmur. No S3. ABDOMEN: Soft, benign. No masses or organomegaly. No tenderness. Bowel sounds are active. EXTREMITIES: Mild varicosities. No edema. No calf tenderness. NEUROLOGIC: Reflexes are 1+ with no gross motor deficits. Cranial nerves grossly intact. RECTAL: Deferred. Assessment and Plan Assessment and Plan IMPRESSION 1. COPD with acute exacerbation. 2. Atrial fibrillation and ASHD. 3. Hypertension. 4. Dementia. 5. History of CHF and ASHD. Plan : 1. Continue antibiotics Rocephin and switch to PO Zithromax 2. D/C O2 3. CXR in am. 4. Up with help and arrange rehab. 5. Cont Duonebs qid. Tushar Aguiar MD July 14, 2016 20:42
[2016-07-14] MEDS: DONEPEZIL HCL 5 MG TAB PO SCH (21:10)
[2016-07-14] MEDS: QUEtiapine FUMARATE 25 MG TAB PO SCH (21:10)
[2016-07-15] VITALS: BP 165/87; PULSE 85; RESP 18; TEMP 97.6; O2SAT 99
[2016-07-15] MEDS ORDERED: methylPREDNISolone SOD SUCC 40 MG/1 ML VIAL IV PUSH SCH (02:00)
[2016-07-15 04:00] VITALS: BP 140/90; PULSE 88; RESP 18; TEMP 97.8; O2SAT 97
[2016-07-15] MEDS: cefTRIAXone INJ 1,000 MG in SODIUM CHLORIDE 0.9% INJ 100 ML IV SCH (05:56)
[2016-07-15 08:00] VITALS: BP 120/60; PULSE 90; RESP 18; TEMP 97.5; O2SAT 97
[2016-07-15 08:12] VITALS: PULSE 78
[2016-07-15 08:35] VITALS: O2SAT 96
[2016-07-15] MEDS: RESP: ALBUTEROL 2.5 MG/IPRATROPIUM 0.5 MG NEB (SCH) NEB ×2 (08:35→12:13)
[2016-07-15] MEDS ORDERED: AZITHROMYCIN 250 MG TAB PO SCH (09:00)
--- NOTE | 2016-07-15 09:40 | RADRPT ---
EXAM DATE/TIME: 07/15/2016 09:25 [facility] COMPARISON: CHEST SINGLE AP, July 14, 2016, 6:11. INDICATIONS : Short of breath. MEDICAL HISTORY : Chronic obstructive pulmonary disease. Cardiovascular disease. dementia SURGICAL HISTORY : Appendectomy. Cholecystectomy. Hysterectomy. back fusion ENCOUNTER: Subsequent ACUITY: 3 days PAIN SCORE: 0/10 LOCATION: Bilateral chest FINDINGS: PA and lateral views of the chest demonstrate cardiomegaly with slight interstitial prominence. Minim al density left upper lobe likely related to confluence of overlying bony structures. Osseous struct ures are intact. CONCLUSION: 1. Cardiomegaly with slight interstitial prominence. Osman Mederos MD on July 15, 2016 at 9:37 Board Certified Radiologist. This report was verified electronically.
[2016-07-15] MEDS: DOCUSATE SODIUM 100 MG CAP PO SCH (09:52)
[2016-07-15] MEDS: DIGOXIN 0.125 MG TAB PO SCH (09:52)
[2016-07-15] MEDS: POTASSIUM CHLORIDE 20 MEQ CONTROLLED RELEASE TAB PO SCH (09:52)
[2016-07-15] MEDS: MEMANTINE HCL 10 MG TAB PO SCH (09:52)
[2016-07-15] MEDS: DILTIAZEM-CD 120 MG CAP ER PO SCH (09:52)
[2016-07-15] MEDS: FLUTICASONE PROPIONATE 44 MCG/ACT 10.6 GM INHALER INH SCH (09:53)
[2016-07-15] MEDS: RIVAROXABAN 15 MG TAB PO SCH (09:53)
[2016-07-15] MEDS: SODIUM CHLORIDE 0.9% FLUSH 10 ML FLUSH IV FLUSH SCH (09:53)
--- NOTE | 2016-07-15 11:13 | HHI.PR ---
Subjective Remarks Head of bed elevated 45 degrees Patient is dozing but arouses easily pleasantly confused in room (Juanita Carr) Objective Objective Results - Vital Signs Date Time Temp Pulse Resp B/P Pulse Ox O2 Delivery O2 Flow Rate FiO2 07/15/16 08:35 96 21 07/15/16 08:00 97.5 90 18 120/60 97 07/15/16 04:00 97.8 88 18 140/90 97 07/15/16 00:00 97.6 85 18 165/87 99 07/14/16 21:30 Room Air 07/14/16 20:00 104 07/14/16 20:00 97.6 118 18 157/74 95 07/14/16 19:27 96 21 07/14/16 16:00 97.0 103 18 129/77 97 07/14/16 12:00 97.8 94 18 165/64 97 I/O 07/14/16 07/14/16 07/14/16 07/15/16 07/15/16 07/15/16 07:00 15:00 23:00 07:00 15:00 23:00 Intake Total 360 ml 2 ml 102 ml Balance 360 ml 2 ml 102 ml Intake Oral 360 ml 100 ml IV Total 2 ml 2 ml # Voids 2 3 2 1 # Bowel Movements 0 0 1 (Juanita Carr) Result Diagram: 07/14/16 0812 07/14/16 0812 ROS General: Fatigue, Weakness HEENT: Dysphagia Pulmonary: Cough (occ with food ) Neuro/MS: Other (alzheimers dementia) (Juanita Carr) Physical Exam Physical Exam PHYSICAL EXAMINATION GENERAL: This is an elderly female who appears to be in no acute distress at restShe is awake, HEAD: Normocephalic without any lesion or mass noted. Facial features appear symmetric. OROPHARYNGEAL: Oropharynx without erythema or edema., occasional food seen in mouth NECK: Supple. Trachea midline without deviation. CARDIAC: Regular rhythm, regular rate, S1 and S2 are heard. LUNGS: Diminished to auscultation bilaterally. Occasional rhonchi and cough, low air volumes noted at rest ABDOMEN: Soft, nontender, no organomegaly or masses. Bowel sounds are heard in all four quadrants. EXTREMITIES: No edema. Pulses equal bilateral. NEUROLOGICAL: Patient mood and affect flat and quiet . Occasional random talking Pleasantly confused SKIN:Warm , dry (Juanita Carr) A/P Assessment and Plan COPD exacerbation with bronchitis remains with inc. cough, congested. O2, dual nebs ,steroids, Continue with empiric antibiotics, Zithromax and Rocephin. Chest x-ray follow-up improved, still shows cardiomegaly with mild interstitial prominence. Encouraged to work with us to turn cough and deep breathe patient ST evaluation done. Patient was able to swallow food with constant cueing Diet is maintained as mechanical soft with thin liquids. Patient did well on her swallow study with ST at that particular time of day. Reminded when feeding patient that she needed to be fully alert, and constantly remind her to swallow Elevated troponin, no complaint of chest pain or shortness of breath continue with medical management, appreciate cardiology consult By mouth Lasix Chronic A. fib flutter, heart rate stable 90s to 100 Continue with Cardizem 120 mg by mouth daily cardiac telemetry, Xarelto Acute on Chronic CHF, mild elevation in BNP Maintain by mouth Lasix for now Hypertension, stable Dementia, probable end-stage with possible dysphagia ST eval done needs to be out of bed Physical therapy recommended [facility] with continued physical therapy. Discussed this with her who wants to take her home where he can be with her. Discussed risk and benefit of her dementia and also supported him in his care for her. Case management consult for discharge options -Continue with Namenda and Aricept Continue with Zoloft and Seroquel Continue with Xarelto for DVT prophylaxis pt. not ready for discharge, needs inpatient admission. Risk of complications such as pulm edema, resp. failure. Needs IV diuretics, IV steroid, oxygen. Pt elderly, multiple comorbidities. D/W Dr. Bravo, seen on her behalf D/W pt's , d/ w nurse (Juanita Carr) Assessment and Plan patient seen and examined agree with above assessment and plan ok to d/c back to [facility] on po antibiotics and steroid taper discussed with patient's family at bed side, nursing staff and Juanita FOX (Natalie Bravo MD) Juanita Carr July 15, 2016 11:13 Natalie Bravo MD July 15, 2016 15:10
[2016-07-15 12:00] VITALS: BP 148/90; PULSE 94; RESP 18; TEMP 97.9; O2SAT 92
--- NOTE | 2016-07-15 13:04 | HHI.PR ---
Subjective Remarks Feels OK . On IV antibiotics. CXR is OK with mild interstitial disease. Off O2 sat 96. Objective Vital Signs Date Time Temp Pulse Resp B/P Pulse Ox O2 Delivery O2 Flow Rate FiO2 07/15/16 12:00 97.9 94 18 148/90 92 07/15/16 08:35 96 21 07/15/16 08:00 97.5 90 18 120/60 97 07/15/16 04:00 97.8 88 18 140/90 97 07/15/16 00:00 97.6 85 18 165/87 99 07/14/16 21:30 Room Air 07/14/16 20:00 104 07/14/16 20:00 97.6 118 18 157/74 95 07/14/16 19:27 96 21 07/14/16 16:00 97.0 103 18 129/77 97 I/O 07/14/16 07/14/16 07/14/16 07/15/16 07/15/16 07/15/16 07:00 15:00 23:00 07:00 15:00 23:00 Intake Total 360 ml 2 ml 102 ml Balance 360 ml 2 ml 102 ml Intake Oral 360 ml 100 ml IV Total 2 ml 2 ml # Voids 2 3 2 1 # Bowel Movements 0 0 1 Result Diagram: 07/14/16 0812 07/14/16 0812 Objective Remarks GENERAL: This is an elderly thinly built white female who is in no distress. Mild pallor. No cyanosis. HEENT: Head is normocephalic. Pupils reactive and equal. Tongue is moist. Nasal mucosa edematous. Throat is clear . NECK: Supple. No lymphadenopathy. No bruits. No thyroid enlargement. CHEST: Equal movements with Prolonged expirations.Occ Basal crackles HEART: The heart sounds are irregular, S1 and S2. No murmur. No S3. ABDOMEN: Soft, benign. No masses or organomegaly. No tenderness. Bowel sounds are active. EXTREMITIES: No edema. No calf tenderness. NEUROLOGIC: Reflexes are 1+ with no gross motor deficits. Cranial nerves grossly intact. RECTAL: Deferred. Assessment and Plan Assessment and Plan IMPRESSION 1. COPD with acute exacerbation. 2. Atrial fibrillation and ASHD. 3. Hypertension. 4. Dementia. 5. History of CHF and ASHD. Plan : 1. Continue antibiotics and switch to Ceftin 500 mg bid X 7 days 2. D/C O2 3. OK to go home on Po meds 4. Up with help and arrange rehab. 5. Cont Duonebs tid. 6. Will see as OP in 2 weeks Tushar Aguiar MD July 15, 2016 13:04
--- NOTE | 2016-07-15 13:46 | HHI.FF ---
Face to Face Verification Diagnosis: (1) Alzheimer's dementia (2) UTI (urinary tract infection) (3) Altered mental status (4) Atrial fibrillation (5) COPD exacerbation (6) CHF (congestive heart failure) (7) Hypertension Physical Therapy Order: Evaluate and Treat, Improve ambulation, Strength and gait training Occupational Therapy Order: Evaluate and Treat, Improve ADL, Gross motor coordination, Fine motor coordination Speech Therapy Order: To Improve: Cognitive skills Home Health Nursing Order: Nursing assessment with vital signs I have seen patient Hyacinth Bermudez on 07/15/16. My clinical findings support the need for the requested home health care services because: Ltd mobility - disease progression Deconditioned w/ increased weakness Limited ability to care for self High risk of falls I certify that my clinical findings support that this patient is homebound because: Impaired cognitive ability/safety Juanita Carr July 15, 2016 13:46
[2016-07-15] MEDS ORDERED: PRED10 PO (15:11)
[2016-07-15] MEDS ORDERED: CEFT500T3 PO (15:11)
[2016-07-15] MEDS ORDERED: predniSONE 10 MG TAB PO SCH (21:00)
[2016-07-15] MEDS ORDERED: SERTRALINE HCL 50 MG TAB PO SCH (21:00)
[2016-07-15] MEDS ORDERED: CEFUROXIME AXETIL 500 MG TAB PO SCH (21:00)
--- NOTE | 2016-07-19 18:08 | HHI.DS ---
Discharge Summary Admission Date July 13, 2016 at 09:24 Discharge Date: July 15, 2016 Admitting Diagnosis COPD exacerbation/bronchitis/elevated troponin (1) COPD exacerbation (2) Bronchitis (3) Atrial fibrillation (4) Hypertension (5) Dementia (6) CHF (congestive heart failure) Imaging Last Impressions Chest X-Ray 07/15/16 0600 Signed Impressions: Service Date/Time: Friday, July 15, 2016 09:25 - CONCLUSION: 1. Cardiomegaly with slight interstitial prominence. Osman Mederos MD Hospital Course This an 89-year-old elderly female from a local assisted living facility with past medical history of COPD, dementia, A. fib on anticoagulation, hypertension. Patient presented to the emergency room because of several days of shortness of breath. Patient is unable to provide any information, she is demented. There was no family at bedside. Per review of emergency room records , EMS gave her Solu-Medrol and nebulizer treatments and there was some improvement in symptoms. Patient was examined emergency room, she wakes to voice. She has no idea where she is. Laboratory completed was essentially unremarkable. There was some mild elevation in troponin 0.08. No chest pain reported. B natruretic peptide 149. Lactic acid 1.1. Potassium 3.4. Chest x- ray showed mild perihilar airspace disease, right greater than left. Minimal basilar density probably representing atelectasis. Patient was started on Zithromax and Rocephin and given DuoNeb's. Patient was admitted for further medication and treatment: (1) COPD exacerbation (2) Bronchitis (3) Atrial fibrillation (4) Hypertension (5) Dementia (6) CHF (congestive heart failure) During the course of the hospitalization, the following took place: 89-year-old patient with dementia, COPD, A. fib, CHF. Presented to emergency room with complaints of shortness of breath. COPD exacerbation with bronchitis -Given supplemental oxygen at 2 L to keep sats greater than 92 -Put on IV Solu-Medrol 40 mg IV every 8 Continued with DuoNeb's Continued with empiric antibiotics, Zithromax and Rocephin. -Added Robitussin PRN -Pulm consult Dr. Aguiar -ABG done -Condition improved, was changed to oral steroids. Less wheezing, less SOB Chest x-ray follow-up improved, still showed cardiomegaly with mild interstitial prominence -had swallow eval, diet recommendations followed. Discussed with to assist. Elevated troponin, no complaint of chest pain trop. not trending up -continued with medical management -cardiology evaluated, medical management recommended Chronic A. fib flutter, heart rate stable Continued with Cardizem 120 mg by mouth daily Continuous cardiac telemetry Continue with Xarelto 50 mg by mouth daily Acute on Chronic CHF, mild elevation in BNP noted with inc. rales -changed Lasix to 20 mg IV BID and K supplement -rales resolved Hypertension, stable Continue home medications Dementia Anxiety -Continue with Namenda and Aricept Continue with Zoloft and Seroquel Labs in am PT eval and tx done CM for dc planning, back to [facility] with HHC and PT Continue with Xarelto for DVT prophylaxis Pt.'s condition improved Discharged to [facility] in stable condition Instructed to have pt. f/u wit PCP and pulm Pt Condition on Discharge: Stable Discharge Disposition: [facility] Discharge Instructions DIET: Follow Instructions for: Heart Healthy Diet Speech Therapy-Diet Recommends: Mechanical Soft Activities you can perform: See Additionl Instruction New Medications: Cefuroxime (Ceftin) 500 Mg Tab 500 MG PO Q12HR infection Days 7 TAB Prednisone (Prednisone) 10 Mg Tab 10 MG PO BID Take 1 tab po bid for 5 days, then 1 tab po daily for 5 days, then discontinue Shortness of Breath #15 TAB Continued Medications: Alendronate (Fosamax) 70 Mg Tab 70 MG PO Q7D PRN Osteoporosis Treatment #4 Ref 0 TAB Digoxin (Lanoxin) 0.125 Mg Tab 0.125 MG PO DAILY Regulate Heart Beat #30 Ref 0 TAB Diltiazem (Cardizem) 120 Mg Tab 120 MG PO DAILY Angina #120 Ref 0 TAB Docusate Sodium (Docusate Sodium) 100 Mg Cap 100 MG PO BID Prevent Constipation #60 Ref 0 CAP Donepezil (Donepezil) 5 Mg Tab 5 MG PO HS Dementia #30 Ref 0 TAB Fluticasone 10.6 GM Inh (Flovent Hfa 10.6 GM Inh) 44 Mcg/Act Inh 2 PUFF INH BID Use daily at the same time. Asthma Management #1 Ref 0 INHALER Fluticasone Nasal [place] (Flonase Allergy Relief Children Nasal [place]) 50 Mcg/ Act [place] 1 SPRAY EACH NARE DAILY 50 mcg/spray Allergy Management #1 Ref 0 BOTTLE Furosemide (Lasix) 20 Mg Tab 20 MG PO [facility] #60 Ref 0 TAB Ipratropium HFA 12.9 GM Inh (Atrovent HFA 12.9 GM Inh) 17 Mcg/Act Aer 2 PUFF INH TID Asthma Management #1 Ref 0 INHALER Memantine (Namenda) 10 Mg Tab 10 MG PO BID Alzheimer Disease #30 Ref 0 TAB Multiple Vitamins W/ Minerals (Osteoprime Ultra) 1 Tab Tab Potassium Chloride ER (Potassium Chloride CR) 10 Meq Tab 10 MEQ PO mwf #30 TAB Quetiapine (Seroquel) 25 Mg Tab 25 MG PO health #90 Ref 0 TAB Rivaroxaban (Xarelto) 15 Mg Tab 15 MG PO DAILY Blood Clot Prevention Ref 0 TAB Sertraline (Zoloft) 25 Mg Tab 25 MG PO DAILY #30 Ref 0 TAB Nahomi Villegas July 19, 2016 18:08
== END 2016-07-15 16:30 | DRG 292 ==
LOC: NEPE 04:36 → NEDA 06:39 → NEPGCP 08:44 → OBSVTOIN 07-13 09:24 → N04A 07-13 18:49
PROVIDERS: ADMIT Internal Medicine; ATTEND Internal Medicine
DX: I11.0 Hypertensive heart disease with heart failure (principal); J44.1 Chronic obstructive pulmonary disease with (acute) exacerbation; I48.92 Unspecified atrial flutter; F03.90 Unspecified dementia, unspecified severity, without behavioral disturbance, psychotic disturbance, mood disturbance, and anxiety; J98.11 Atelectasis; I50.9 Heart failure, unspecified; I48.2 Chronic atrial fibrillation; R13.10 Dysphagia, unspecified; G47.33 Obstructive sleep apnea (adult) (pediatric); I25.10 Atherosclerotic heart disease of native coronary artery without angina pectoris; E78.5 Hyperlipidemia, unspecified; G89.29 Other chronic pain; M54.9 Dorsalgia, unspecified; K59.00 Constipation, unspecified; M48.00 Spinal stenosis, site unspecified; M19.90 Unspecified osteoarthritis, unspecified site; M81.0 Age-related osteoporosis without current pathological fracture; F41.8 Other specified anxiety disorders; Z79.01 Long term (current) use of anticoagulants; Z77.22 Contact with and (suspected) exposure to environmental tobacco smoke (acute) (chronic); Z88.2 Allergy status to sulfonamides
CPT/HCPCS: 36600; 71010; 71020; 80048; 80053; 82805; 83605; 83880; 84484; 85025; 85027; 87040; 87804; 93005; 94640; 94664; 96365; J0456; J0696; J1940; J2920; J7050

== ENCOUNTER 2016-08-15 18:01 | Emergency (ER) | payer MEDICARE ==
[~2016-08-15] VITALS: Ht 165.1 cm; Wt 55.0 kg
[~2016-08-15 18:01] MED LIST changes: -ALEN1TAB48 PO; -ASPI81CH7 CHEW; +CARD120T4 PO; +CEFT500T3 PO; -CELE1CAP6 PO; -DILT120C58 PO; +DOCU100C PO; +FLUT1SPR9 EACH NARE; +FOSA70TA PO; +LANO0.1212 PO; +OSTETAB13; +PRED10 PO; -SUCR1TAB PO; -UMEC1AER INH; +ZOLO25TA PO; -ZOLO50TA PO
[2016-08-15 18:04] VITALS: BP 157/93; PULSE 104; RESP 16; TEMP 97.8; O2SAT 99
[2016-08-15 18:12] VITALS: BP 167/94; PULSE 93; RESP 18; TEMP 98.6; O2SAT 99
[2016-08-15] MEDS ORDERED: ACETAMINOPHEN/HYDROcodone 325 MG/5 MG TAB PO ONE (18:15)
--- NOTE | 2016-08-15 18:18 | PD ---
HPI Chief Complaint: Pain: Acute or Chronic Time Seen by Provider: 18:11 Travel History International Travel<30 days: No Contact w/Intl Traveler<30days: No Traveled to known affect area: No History of Present Illness HPI This is an 89-year-old female who has a history of dementia and is in a [facility] who evidently had a fall several days ago. She's been complaining of ankle pains they got an x-ray and they were concerned that she had a distal fibular fracture. Patient was transported here. She's not able to provide any history. PFSH Past Medical History Hx Anticoagulant Therapy: Yes (XARELTO) Arthritis: Yes Asthma: Yes Atrial Fibrillation: Yes Blood Disorders: No Anxiety: Yes Depression: Yes Heart Rhythm Problems: Yes (afib ) Cancer: No Cardiovascular Problems: Yes High Cholesterol: Yes Chest Pain: Yes Congestive Heart Failure: Yes COPD: Yes Dementia: Yes Diminished Hearing: No Endocrine: No Gastrointestinal Disorders: No Genitourinary: No Hypertension: Yes Immune Disorder: No Implanted Vascular Access Dvce: No Musculoskeletal: Yes Neurologic: Yes Psychiatric: Yes (dementia ) Reproductive: No Respiratory: Yes Immunizations Current: Yes Sleep Apnea: Yes ?: Not Menopausal: Yes Past Surgical History Abdominal Surgery: Yes (APPENDECTOMY, GALLBLADDER REMOVED) Appendectomy: Yes Cardiac Surgery: No Cholecystectomy: Yes Eye Surgery: Yes (CATARACT BILAT REPAIR) Gynecologic Surgery: Yes (HYSTERECTOMY) Hysterectomy: Yes Neurologic Surgery: No Thoracic Surgery: No Tonsillectomy: Yes Other Surgery: Yes (BACK SURGERY) Social History Alcohol Use: No Tobacco Use: No Substance Use: No Allergies-Medications (Allergen,Severity, Reaction): Coded Allergies: Lyrica (Verified Allergy, Severe, 11/24/15) Sulfa (Verified Allergy, Severe, HIVES, 11/24/15) Soma (Verified Allergy, Intermediate, passes out, 11/24/15) Reported Meds & Prescriptions Reported Meds & Active Scripts Active Seroquel (Quetiapine Fumarate) 25 Mg Tab 25 Mg PO HS Reported Lasix (Furosemide) 20 Mg Tab 20 Mg PO MOWEFR Take 1 tablet (20mg) daily on Wednesday,Wednesday and Wednesday Multi Vitamin and Mineral (Multiple Vitamins W/ Minerals) 1 Tab Tab 1 Tab PO DAILY Digoxin 0.125 Mg Tab 0.125 Mg PO DAILY Potassium Chloride ER (Potassium Chloride) 10 Meq Cap 10 Meq PO MOWEFR Take 1 tablet daily on Wednesday,Wednesday and Wednesday Fosamax (Alendronate Sodium) 70 Mg Tab 70 Mg PO Q7D PRN Docusate Sodium 100 Mg Cap 100 Mg PO BID Cardizem (Diltiazem HCl) 120 Mg Tab 120 Mg PO DAILY Zoloft (Sertraline HCl) 25 Mg Tab 25 Mg PO DAILY Xarelto (Rivaroxaban) 15 Mg Tab 15 Mg PO DAILY Namenda (Memantine) 10 Mg Tab 10 Mg PO BID Atrovent HFA 12.9 GM Inh (Ipratropium [place]) 17 Mcg/Act Aer 2 Puff INH TID Flovent Hfa 10.6 GM Inh (Fluticasone Propionate) 44 Mcg/Act Inh 2 Puff INH BID Use daily at the same time. Donepezil 5 Mg Tab 5 Mg PO HS Review of Systems Except as stated in HPI: all other systems reviewed are Neg Physical Exam Narrative GENERAL:Well appearing, no acute distress SKIN: Focused skin assessment warm and dry. HEAD: Atraumatic. Normocephalic. EYES: Pupils equal and round. No injection or drainage. ENT: Moist mucous membranes NECK: Trachea midline. CARDIOVASCULAR: Regular rate and rhythm. No murmur appreciated. 2+ right dorsalis pedis pulse with normal capillary refill. RESPIRATORY: Clear to auscultation. Breath sounds equal bilaterally. GASTROINTESTINAL: Abdomen soft, non-tender, nondistended. MUSCULOSKELETAL: Tender to palpation over the lateral malleolus with some effusion of the right ankle. NEUROLOGICAL: Awake and alert. No obvious cranial nerve deficits. Moving all extremities. PSYCHIATRIC: Appropriate mood and affect; insight and judgment normal. Data Data Last Documented VS Vital Signs Date Time Temp Pulse Resp B/P Pulse Ox O2 Delivery O2 Flow Rate FiO2 08/15/16 18:16 96 18 08/15/16 18:12 98.6 167/94 99 Orders Ankle, Complete ([id number]) (08/15/16 ) Tibia/Fibula (Ap/Lat) (08/15/16 ) Knee, Ltd (1 Or 2vws) (08/15/16 ) Acetamin-Hydrocod 325-5 Mg ([place] 5-325 (08/15/16 18:15) Acetamin-Hydrocod 325-7.5 Liq (Hycet 325 (08/15/16 18:30) [facility] Medical Decision Making Medical Screen Exam Complete: Yes Emergency Medical Condition: Yes Interpretation(s) acute nondisplaced fracture of the right distal fibula effusion of the knee Differential Diagnosis Lateral malleolus fracture, medial malleolus fracture, patellar fracture, tibial plateau fracture Narrative Course This is an 89-year-old female who presents to the emergency department having sustained a fall. She has a normal baseline exam with the exception of swelling and pain of her ankle and some pain at her knee. X-rays were obtained which demonstrate a nondisplaced fibular fracture. Patient will be placed in a splint and will be given orthopedic follow-up. Diagnosis Primary Impression: Closed fibular fracture Qualified Code: S82.64XA - Closed nondisplaced fracture of lateral malleolus of right fibula, initial encounter Referrals: Dmitriy Marcelo MD Patient Instructions: General Instructions Additional Instructions: If you develop numbness, weakness or severe pain return to the emergency department. Follow up with orthopedics without fail. Med/Other Pt SpecificInfo: Prescription(s) given Scripts Acetaminophen-Codeine Liq (Tylenol-Codeine Elixir)120-12 Mg/5 Ml Soln10 Ml PO Q6H PRN (PAIN) #120 ML Ref 0 Prov:Paulette Morales MD 08/15/16 Paulette Morales MD Aug 15, 2016 18:17
[2016-08-15] MEDS ORDERED: ACETAMINOPHEN 325MG/HYDROcodone 7.5MG/15ML UDC PO ONE (18:30)
[2016-08-15] MEDS ORDERED: MULT-142 PO (18:39)
[2016-08-15] MEDS ORDERED: DIGO0.12 PO (18:39)
[2016-08-15] MEDS ORDERED: POTA10CA PO (18:39)
[2016-08-15] MEDS ORDERED: FURO1TAB62 PO (18:41)
--- NOTE | 2016-08-15 20:04 | RADRPT ---
EXAM DATE/TIME: 08/15/2016 18:37 [facility] COMPARISON: No previous studies available for comparison. INDICATIONS : Right lower extremity pain after fall MEDICAL HISTORY : Osteoarthritis. SURGICAL HISTORY : Unknown ENCOUNTER: Initial ACUITY: 1 day PAIN SCORE: 8/10 LOCATION: Right lower extremity FINDINGS: Linear lucencies are noted involving the distal fibula suggestive of acute nondisplaced fractures. C linical correlation is recommended. The ankle mortise is intact. Diffuse osteopenia is noted involv ing the bones of the right ankle and lower leg. CONCLUSION: 1. Acute nondisplaced fractures involving the right distal fibula. 2. Diffuse osteopenia of the right foot, ankle and lower leg. Herb Alvarez MD on August 15, 2016 at 19:57 Board Certified Radiologist. This report was verified electronically.
--- NOTE | 2016-08-15 20:06 | RADRPT ---
EXAM DATE/TIME: 08/15/2016 18:41 [facility] COMPARISON: No previous studies available for comparison. INDICATIONS : Right lower extremity pain after fall MEDICAL HISTORY : Osteoarthritis. SURGICAL HISTORY : Unknown ENCOUNTER: Initial ACUITY: 1 day PAIN SCORE: 8/10 LOCATION: Right knee FINDINGS: Chondrocalcinosis of the femoral tibial joint is noted. There is a moderate sized suprapatellar knee joint effusion. Diffuse osteopenia is noted involving the bones of the right knee. There is no acu te fracture or dislocation of the right knee. Vascular calcifications are noted within the lower thi gh and knee. CONCLUSION: 1. Chondrocalcinosis and moderate sized suprapatellar knee joint effusion raising the possibility of pseudogout. 2. Diffuse osteopenia. 3. No acute fracture or dislocation. Herb Alvarez MD on August 15, 2016 at 20:02 Board Certified Radiologist. This report was verified electronically.
--- NOTE | 2016-08-15 20:06 | RADRPT ---
EXAM DATE/TIME: 08/15/2016 18:35 [facility] COMPARISON: KNEE RIGHT LTD (1 OR 2 VWS), August 15, 2016, 18:41. INDICATIONS : Right lower extremity pain after fall MEDICAL HISTORY : Osteoarthritis. SURGICAL HISTORY : unknown ENCOUNTER: Initial ACUITY: 1 day PAIN SCORE: 7/10 LOCATION: Left tibia FINDINGS: Nondisplaced fractures involving the right distal fibula are noted. Diffuse osteopenia of the fibula and tibia are noted. CONCLUSION: 1. Nondisplaced fractures involving the right distal fibula. 2. Diffuse osteopenia. Herb Alvarez MD on August 15, 2016 at 20:03 Board Certified Radiologist. This report was verified electronically.
[2016-08-15] MEDS ORDERED: ACET120S PO (20:14)
[2016-08-15 20:30] VITALS: BP 144/62; PULSE 94; RESP 16; O2SAT 97
== END 2016-08-15 20:57 | disposition home or self-care (01) ==
LOC: NEPD 18:01
DX: S82.64XA Nondisplaced fracture of lateral malleolus of right fibula, initial encounter for closed fracture (principal); M25.461 Effusion, right knee; F03.90 Unspecified dementia, unspecified severity, without behavioral disturbance, psychotic disturbance, mood disturbance, and anxiety; I10 Essential (primary) hypertension; I50.9 Heart failure, unspecified; J44.9 Chronic obstructive pulmonary disease, unspecified; I48.91 Unspecified atrial fibrillation; W19.XXXA Unspecified fall, initial encounter; Y92.129 Unspecified place in nursing home as the place of occurrence of the external cause
CPT/HCPCS: 29515; 73560; 73590; 73610